=== PATIENT | female | born 1975 | race African-American/Black ===

== ENCOUNTER 2020-07-25 16:28 | Emergency (ER) | payer OTHER, SELFPAY ==
[2020-07-25 16:37] VITALS: BP 108/63; PULSE 61; RESP 16; TEMP 36.6; O2SAT 100
--- NOTE | 2020-07-25 16:49 | ED.FEMALEGU ---
HPI - Female Genitourinary General Chief complaint: Urogenital-Female Stated complaint: pos uti Time Seen by Provider: 07/25/20 16:45 Source: patient Mode of arrival: ambulatory Limitations: no limitations History of Present Illness HPI Narrative: Shelby Bo is a 44 yo female with a PMH of depression and bradycardia who comes to [facility] for evaluation of possible UTI because she has an occasional twinge in her left lower abdomen and she has a history of multiple UTIs. Denies any frequency are hematuria. She has been having this occasional left lower abdominal pain for the last week. She had partial hysterectomy last year there is some scar tissue that was removed couple months post the initial partial hysterectomy Related Data Home Medications Medication Instructions Recorded Confirmed fluoxetine mg 02/08/19 Allergies Allergy/AdvReac Type Severity Reaction Status Date / Time povidone-iodine Allergy Unknown Unverified 05/16/18 11:27 soap Allergy Unknown Unverified 05/16/18 11:27 amoxicillin AdvReac Unknown YEAST Verified 05/16/18 11:27 INFECTION ciprofloxacin AdvReac Unknown YEAST Verified 05/16/18 11:27 INFECTION Shrimp Allergy Unknown Uncoded 05/16/18 11:27 Review of Systems Review of Systems: Narrative: CONSTITUTIONAL: Denies fever, chills, sweats. EYES: Denies visual changes, redness, discharge. ENT: Denies rhinorrhea, congestion, sore throat, otalgia. CARDIOVASCULAR: Denies chest pain, palpitations, edema. RESPIRATORY: Denies dyspnea, wheezing, cough GASTROINTESTINAL: Denies abdominal pain, nausea, vomiting, diarrhea. GENITOURINARY: Denies dysuria, hematuria, abnormal discharge. Denies any discharge, mild left lower abdominal discomfort SKIN: Denies rash or itching. NEUROLOGIC: Denies numbness, or focal weakness. PSYCHIATRIC: Denies anxiety or depression. [facility] Past Medical History Medical History Bradycardia Depression UTI (urinary tract infection) Surgical History Surgical History History of partial hysterectomy Family History Family History Other Diabetes mellitus Heart disease Hypertension Social History Social History (Updated 07/25/20 @ 17:07 by Lucy Clark CNP) Smoking status: Never smoker Alcohol intake: current Comments At time of signature, I agree with nursing past medical, surgical, social and family history. There is no relevant family history pertinent to the presenting complaint. Exam Narrative: Exam Narrative: GENERAL: This is a well-nourished, well-developed patient, in mild distress. HEAD: normocephalic, atraumatic. EYES: . Sclera clear/white. Vision is grossly intact. EARS: External ears normal. Hearing grossly intact. NOSE: External nose normal without nasal discharge, nares without redness, no rhinorrhea. THROAT: Mucous membranes moist, NECK: Neck supple, CARDIOVASCULAR: Regular rate and rhythm without murmurs, gallops, or rubs. RESPIRATORY: Clear to auscultation. Breath sounds equal bilaterally. No wheezes, rales, or rhonchi. GASTROINTESTINAL: Abdomen soft, denies abdominal pain are vaginal discharge SKIN: warm, intact with no suspicious lesions or rash, good texture and turgor. NEURO: awake, alert, and oriented to person, place and time. There were no obvious focal neurologic abnormalities. Steady gait EXTREMITIES: Normal range of motion. BACK: Nontender without deformity Course Course Emergency Course: Patient comes with no symptoms of UTI but wanted to be checked out for 1 as she has this vague intermittent left lower abdominal discomfort and she has had a history of frequent UTI UA shows no nitrites leukocyte esterase are blood in urine Discussed follow-up with her [employer] who had done her partial hysterectomy a year and a half ago and also with a general
== END 2020-07-25 17:02 | disposition home or self-care (01) ==
PROVIDERS: Emergency Provider Nurse Practitioner; PCP Family Medicine
DX: R10.32 Left lower quadrant pain (principal); Z87.440 Personal history of urinary (tract) infections
CPT/HCPCS: 81003; 99212; G0463

== ENCOUNTER 2021-06-17 11:49 | Emergency (ER) | payer OTHER, SELFPAY ==
[2021-06-17 11:59] VITALS: BP 98/62; PULSE 62; RESP 16; TEMP 36.3; O2SAT 100
--- NOTE | 2021-06-17 11:59 | ED.URI ---
HPI - URI/Sore Throat General Chief Complaint: Upper Respiratory Infection Stated Complaint: uri Time Seen by Provider: 06/17/21 12:01 Source: patient, RN notes reviewed and old records reviewed Mode of arrival: ambulatory Limitations: no limitations History of Present Illness HPI Narrative: 45-year-old female presents to the [facility] with complaints of upper respiratory symptoms to include runny nose, congestion. States it all started Monday. Reports taking Benadryl last night. Has had a scratchy throat. MD elicited complaint: rhinorrhea Related Data Home Medications Medication Instructions Recorded Confirmed fluoxetine mg 02/08/19 Otc Probiotic Gummy 06/17/21 albuterol sulfate INHALATION 06/17/21 fluticasone propionate INTRANASAL 06/17/21 Allergies Allergy/AdvReac Type Severity Reaction Status Date / Time povidone-iodine Allergy Unknown Unverified 05/16/18 11:27 soap Allergy Unknown Unverified 05/16/18 11:27 amoxicillin AdvReac Unknown YEAST Verified 05/16/18 11:27 INFECTION ciprofloxacin AdvReac Unknown YEAST Verified 05/16/18 11:27 INFECTION Shrimp Allergy Unknown Uncoded 05/16/18 11:27 Review of Systems Review of Systems: All systems reviewed & are unremarkable except as noted in HPI and below Constitutional: Constitutional: Reports no additional constitutional complaints, Denies chills, Denies fever(s) and Denies headache(s) Eyes: Eyes: Reports no additional eye complaints ENT: Reports as per HPI, Denies vertigo, Denies dizziness, Denies headache(s), Reports nasal congestion and Reports sore throat Comments: Rhinorrhea Cardiovascular: Cardiovascular: Reports no additional cardiovascular complaints, Denies chest pain, Denies syncope, Denies rapid heart rate and Denies dyspnea Respiratory: Respiratory: Reports as per HPI, Reports cough, Denies dyspnea and Denies wheezing Gastrointestinal: Gastrointestinal: Reports no additional gastrointestinal complaints, Denies abdominal pain, Denies diarrhea, Denies nausea and Denies vomiting Musculoskeletal: Musculoskeletal: Reports no additional musculoskeletal complaints and Denies numbness Integumentary/Breasts: Skin/Breast: Reports system reviewed and no additional complaints, except as docu Neurologic: Reports system reviewed and no additional complaints, except as documented, Denies vertigo, Denies dizziness, Denies syncope, Denies headache(s), Denies focal weakness and Denies numbness Psychiatric: Psychiatric: Reports no additional psychiatric complaints Allergic/Immunologic: Allergic/Immunologic: Reports no additional allergic/immunologic complaints and Denies wheezing PMFSH Past Medical History Medical History (Updated 06/17/21 @ 12:13 by Shalonda Ayala APRN) Bradycardia Depression UTI (urinary tract infection) Surgical History Surgical History History of partial hysterectomy Family History Family History Other Diabetes mellitus Heart disease Hypertension Social History Social History Smoking status: Never smoker Alcohol intake: current Comments At the time of my signature, I reviewed and agree with the nursing past medical, surgical, social, and family history. There is no relevant family history pertinent to the patient complaint. Exam Const: General: cooperative, healthy appearing, no acute distress, well developed and alert Nutritional Appearance: well nourished Orientation/consciousness: patient oriented x3 Limitations: no limitations HENMT: Head: normal to inspection Ears: external ears normal, EAC's normal and TM abnormal with fluid behind the TM bilateral; not erythematous and with no loss of landmarks Eyes: Conjunctivae: conjunctivae normal Pupils: Equal, round and reactive pupils present Neck: Neck: normal visual inspection, no lymphade
== END 2021-06-17 12:17 | disposition home or self-care (01) ==
PROVIDERS: Emergency Provider Nurse Practitioner; PCP Family Medicine
DX: J30.9 Allergic rhinitis, unspecified (principal)
CPT/HCPCS: 99213; G0463

== ENCOUNTER 2024-08-24 16:51 | Emergency (ER) | payer OTHER, SELFPAY ==
--- NOTE | 2024-08-24 16:57 | ED_ITS ---
HPI - Female Genitourinary General Chief complaint: Urogenital-Female Stated complaint: Ear Irritation/UTI Time Seen by Provider: 08/24/24 17:05 Source: patient Mode of arrival: ambulatory Limitations: no limitations History of Present Illness HPI Narrative: Shelby is a 48-year-old female patient presenting to the clinic today with complaints of left ear pain and possible UTI. She reports she is having some bu rning with urination this been going on for a couple weeks. Also reporting some left ear pain that started last night. No fevers, chills, body aches. Denies any nausea, vomiting, abdominal pain, or flank pain. No concern for STIs. History of hysterectomy. Related Data Home Medications ?Medication ?Instructions ?Recorded ?Confirmed ?Last Taken ?Type fluoxetine 20 mg capsule mg 02/08/19 Unknown History albuterol sulfate 90 mcg/actuation inhalation 08/24/24 Unknown History aerosol inhaler meloxicam 15 mg tablet mg 08/24/24 Unknown History omeprazole 20 mg capsule,delayed mg 08/24/24 Unknown History release phentermine 37.5 mg tablet mg 08/24/24 Unknown History tirzepatide (weight loss) 10 mg subcut 08/24/24 Unknown History mg/0.5 mL subcutaneous pen injector (LendYourp[employer]) Allergies Allergy/AdvReac Type Severity Reaction Status Date / Time povidone-iodine Allergy Intermediate Rash Verified 08/24/24 16:57 soap Allergy Unknown Rash Verified 08/24/24 16:57 amoxicillin AdvReac Unknown YEAST Verified 08/24/24 16:57 INFECTION ciprofloxacin AdvReac Unknown YEAST Verified 08/24/24 16:57 INFECTION Shrimp Allergy Intermediate RASH Uncoded 08/24/24 16:57 Review of Systems Review of Systems: Pertinent positives per HPI. Patient denies any fever, chills, rash, headache, visual changes, dizziness, cough, shortness of breath, chest pain, palpitations, nausea, vomiting, diarrhea, constipation, abdominal pain, or any urinary issues. [facility] Past Medical History Medical History Depression Bradycardia UTI (urinary tract infection) Surgical History Surgical History History of partial hysterectomy Family History Family History Other Diabetes mellitus Heart disease Hypertension Social History Social History Smoking status: Never smoker Alcohol intake: current Comments At the time of my signature, I reviewed and agree with the nursing past medical, surgical, social, and family history. There is no relevant family history pertinent to the patient complaint. Exam Narrative: General: Well-developed, morbidly obese, in no apparent distress Head: Normocephalic, atraumatic Eyes: Pupils equally round and reactive to light bilaterally, EOM intact, sclera and conjunctive clear, no discharge, lids normal Ears: TMs intact, mild bulging, no redness, ear canals clear, no drainage, grossly hearing normal. Nose: Nares patent, no nasal discharge, no inflammation, no sinus tenderness. Mouth: Oral pharynx without lesions or masses, good dentition, MMM. Neck: Supple, trachea midline, no enlargement of anterior or posterior cervical nodes, no thyroid masses or goiter palpable. Cardio: Regular rate and rhythm, s1 and s2 normal, no murmur appreciated. Resp: Clear to auscultation bilaterally, no rhonchi, rales, wheezing or rubs Abdomen: Soft, pliable, bowel sounds present in all quadrants, non-tender to palpation, no organomegly, no CVAT tenderness. Course Course Emergency Course: Portions of this record may have been created with voice recognition software. Level of Care: Express Care Visit Vital Signs Vital signs: Vital Signs Temperature 36.4 C L 08/24/24 16:59 Pulse Rate 56 L 08/24/24 16:59 Respiratory Rate 16 08/24/24 16:59 Blood Pressure 127/77 08/24/24 16:59 Pulse Oximetry 100 08/24/24 16:59 Oxygen Delivery Room Air 08/24/24 16:59 Temperature 36.4 C L 08/24/24 16:59 Pulse Rate 56 L 08/24/24 16:59 Respiratory Rate 16 08/24/24 16:59 Blood Pressure 127/77 08/24/24 16:59 Pulse Oximetry 100 08/24/24 16:59 Oxygen Delivery Room Air 08/24/24 16:59 Vital signs reviewed MDM - Female Genitourinary MDM Narrative Medical decision making narrative: At the time of visit patient is resting comfortably on the exam table. Patient appears to be nontoxic. Labs: Urinalysis positive for 1+ ketone. No sign of infection. Plan: I suspect patient has dysuria and left otalgia. Encouraged increase fluids, use Flonase and [id number] antihistamines for likely eustachian tube dysfunction. Supportive measures were discussed with the patient and they voiced understanding discharge instructions and agrees to treatment plan. Return precautions reviewed Differential Diagnosis Differential diagnosis: Likely urinary tract infection and cystitis Lab Data Labs: Lab Results 08/24/24 Range/Units 17:01 POC Urine Color Yellow POC Urine Clarity Cloudy POC Urine pH 5.5 POC Ur Specif [place] 1.030 POC Urine Protein Negative (Negative) POC Ur Glucose (UA) Negative (Negative) POC Urine Ketones 1+ (Negative) POC Urine Blood Negative (Negative) POC Urine Nitrite Negative (Negative) POC Urine Bilirubin Negative (Negative) POC Urine Urobilinogen 0.2 POC U Leukocyte Esteras Negative (Negative) Discharge Plan Discharge Clinical Impression: Otalgia of left ear, Dysuria Patient Disposition: Home Condition: Stable Instructions: Antibiotic Form, Earache (ED), Dysuria (ED) Additional Instructions: Urinalysis negative for any sign of bacterial infection. Does show a 1+ of ketones. Increase fluids and stay well hydrated Wipe front to back. May use wet wipes. Avoid tub baths If sexually active- pee before and after intercourse. Wear cotton panties Avoid tight clothing up against the genitals Tylenol/motrin for pain/fever Flonase and OTC antihistamines as directed Go to the ED if you develop a worsening in your condition- high fever not controlled by Tylenol or Motrin, dehydration, weakness, lethargy, shortness of breath, or chest pain. Follow up with your PCP in 3-5 days if symptoms persist. Patient Language: Kazakh Prescriptions: No Action fluoxetine 20 mg capsule meloxicam 15 mg tablet phentermine 37.5 mg tablet omeprazole 20 mg capsule,delayed release(DR/EC) albuterol sulfate 90 mcg/actuation HFA aerosol inhaler INHALATION Zepbound 10 mg/0.5 mL pen injector SUBCUT Follow-up/Referrals: Sondra,Geovanny Hernandez MD [Primary Care Provider] - Time of Disposition: 17:11 Quality NIHSS Nursing Documentation ED NIHSS nursing documentation: reviewed/agree
[2024-08-24 16:59] VITALS: BP 127/77; PULSE 56; RESP 16; TEMP 36.4; O2SAT 100
[2024-08-24 17:11] LABS: EDUAAPPEAR Cloudy; EDUABILI Negative (Negative); EDUABLOOD Negative (Negative); EDUACOLOR1 Yellow; EDUAGLUCOSE Negative (Negative); EDUAKETONE 1+ (Negative); EDUALEUKO Negative (Negative); EDUANITRATE Negative (Negative); EDUAPH 5.5; EDUAPROTEIN Negative (Negative); EDUAUROBILI 0.2
== END 2024-08-24 17:20 | disposition home or self-care (01) ==
PROVIDERS: Emergency Provider Nurse Practitioner Family; PCP Family Medicine
DX: R30.0 Dysuria (principal); H92.02 Otalgia, left ear
CPT/HCPCS: 81003; 99212; G0463